=== PATIENT | female | born 1980 | race Caucasian/White ===

== ENCOUNTER 2023-06-16 06:50 | Emergency (ER) | payer OTHER ==
[2023-06-16] MEDS ORDERED: ACETAMINOPHEN 325 MG TABLET (FP) ONE (07:16)
[2023-06-16] MEDS: ACETAMINOPHEN 325 MG TABLET (FP) PO ONE (07:18)
[2023-06-16 08:19] VITALS: BP 111/71; PULSE 80; RESP 16; TEMP 102.6; BMI 22.8
== END 2023-06-16 08:57 | disposition home or self-care (01) ==
LOC: FER 06:50
DX: R50.9 Fever, unspecified (principal); M79.10 Myalgia, unspecified site; R05.9 Cough, unspecified; B34.9 Viral infection, unspecified; Z20.822 Contact with and (suspected) exposure to COVID-19
CPT/HCPCS: 0241U-QW; 71046-TC-FY; 99284-25